=== PATIENT | male | born 1995 | race African-American/Black ===

== ENCOUNTER 2022-10-15 16:04 | Emergency (ER) | payer OTHER ==
[2022-10-15] MEDS ORDERED: NA CHLORIDE 0.9% 0 ML ONE (16:47)
[2022-10-15] MEDS ORDERED: VANCOMYCIN 1 GM/VIAL ONE ×2 (16:47→16:49)
[2022-10-15] MEDS ORDERED: NA CHLORIDE 0.9% 250 ML ONE (16:49)
[2022-10-15 17:08] LABS: Absolute Lymphocytes (CBC) 1.7 K/uL (0.7-4.9); Hematocrit 45.8 % (39.6-49.0); Lymphocytes % 37.2 % (15.3-44.8); MCV 88.7 fL (80-100); MPV 8.8 fL (7.6-11.3); RBC Red Blood Cell Count 5.16 M/uL (4.33-5.43)
[2022-10-15 17:20] LABS: Potassium 4.2 mEq/L (3.5-5.1)
--- NOTE | 2022-10-15 17:46 | RAD REPORT ---
EXAM DESCRIPTION: CT - Soft Tissue Neck W/Contr CLINICAL HISTORY: SWELLING COMPARISON: No comparisons TECHNIQUE: Thin axial CT images of the neck, performed following intravenous administration of 95 m L Isovue-300. Multiplanar reformats were generated and reviewed. All CT scans are performed using dose optimization technique as appropriate and may include automated exposure control or mA/KV adjustment according to patient size. FINDINGS: Skin thickening, with underlying swelling and moderately pronounced subcutaneous soft tiss ue edema along the right anterolateral neck, overlying the sternocleidomastoid. No measurable fluid c ollections. Skin irregularity just posterolateral to the skin marker, may suggest a small ulcer or wo und. Mild subcutaneous soft tissue swelling extends superiorly and anteriorly, overlying the right pa rotid gland region, and right aspect of the chin. No soft tissue gas. No appreciable inflammatory shruthi nges of the sternocleidomastoid muscle belly or the prior neck soft tissues. Nasopharyngeal tissues are normal in appearance. Fossa Rosenmller are normal. Parapharyngeal fat triangles are symmetric. Tongue base structures are normal. Epiglottis and aryepiglottic folds are normal. Piriform sinuses are well aerated. The vocal cords are normal in appearance. No suspicious adenopathy. Major vessels opacify normally. Salivary glands are normal in appearance. Upper lung west are clear. Included intracranial contents are unremarkable. IMPRESSION: Right antro lateral neck subcutaneous soft tissue swelling, edema, and skin thickening, suggestive of cellulitis. No appreciable fluid collections or findings to suggest infection of the de ep neck spaces.
--- NOTE | 2022-10-15 18:03 | EDPHYS ---
Physician Documentation [facility] Name: Bruce Melton Age: 26 yrs Sex: Male : 1995 Arrival Date: 10/15/2022 Time: 16:04 Bed 20 Private MD: ED Physician Dmitri Shabazz HPI: 10/15 16:24 This 26 yrs old Male presents to ER via Ambulatory with complaints of Abscess. sp3 16:24 26-year-old male with no past medical history presents ED with right-sided neck pain sp3 and abscess. Patient has had symptoms for over a week. At the present, he was prescribed minocycline p.o. but did not pick it up from the pharmacy. Subsequent to that, he "popped it himself" earlier this morning at which point he got out "a lot of pus and some bleeding". It was decided at that point that they will transfer him here for further evaluation. No prior history of neck abscess. There is no airway compromise or difficulty swallowing. Patient does not have any upper respiratory symptoms or any other infectious symptoms that would cause any potential lymphadenopathy. On review of systems, he denies headache, fever, chest pain, back pain, shortness of breath, nausea, vomiting, diarrhea, secondary rash or lesion, known sick contacts, or any other signs or symptoms at this time.. Historical: - Allergies: 16:13 No Known Allergies; kr3 - Home Meds: 16:13 None [Active]; kr3 - PMHx: 16:13 None; kr3 - PSHx: 16:13 None; kr3 - Immunization history:: Adult Immunizations not up to date. - Social history:: Smoking status: Patient denies any tobacco usage or history of. ROS: 16:25 Constitutional: Negative for fever, chills, and weight loss, Eyes: Negative for injury, sp3 pain, redness, and discharge, ENT: Negative for injury, pain, and discharge, Cardiovascular: Negative for chest pain, palpitations, and edema, Respiratory: Negative for shortness of breath, cough, wheezing, and pleuritic chest pain, Abdomen/GI: Negative for abdominal pain, nausea, vomiting, diarrhea, and constipation, Back: Negative for injury and pain, : Negative for injury, bleeding, discharge, and swelling, MS/Extremity: Negative for injury and deformity, Skin: Negative for injury, rash, and discoloration, Neuro: Negative for headache, weakness, numbness, tingling, and seizure, Psych: Negative for depression, anxiety, suicide ideation, homicidal ideation, and hallucinations, Allergy/Immunology: Negative for hives, rash, and allergies, Endocrine: Negative for neck swelling, polydipsia, polyuria, polyphagia, and marked weight changes. 16:25 All other systems are negative. Exam: 16:25 Constitutional: This is a well developed, well nourished patient who is awake, alert, sp3 and in no acute distress. Head/Face: Normocephalic, atraumatic. Eyes: Pupils equal round and reactive to light, extra-ocular motions intact. Lids and lashes normal. Conjunctiva and sclera are non-icteric and not injected. Cornea within normal limits. Periorbital areas with no swelling, redness, or edema. ENT: Nares patent. No nasal discharge, no septal abnormalities noted. External auditory canals are clear. Oropharynx with no redness, swelling, or masses, exudates, or evidence of obstruction, uvula midline. Mucous membranes moist. Chest/axilla: Normal chest wall appearance and motion. Nontender with no deformity. No lesions are appreciated. Cardiovascular: Regular rate and rhythm with a normal S1 and S2. No gallops, murmurs, or rubs. Normal PMI, no JVD. No pulse deficits. Respiratory: Lungs have equal breath sounds bilaterally, clear to auscultation and percussion. No rales, rhonchi or wheezes noted. No increased work of breathing, no retractions or nasal flaring. Abdomen/GI: Soft, non-tender, with normal bowel sounds. No distension or tympany. No guarding or rebound. No evidence of tenderness throughout. Back: No spinal tenderness. No costovertebral tenderness. Full range of motion. Skin: Warm, dry with normal turgor. Normal color with no rashes, no lesions, and no evidence of cellulitis. MS/ Extremity: Pulses equal, no cyanosis. Neurovascular intact. Full, normal range of motion. Neuro: Awake and alert, GCS 15, oriented to person, place, time, and situation. Cranial nerves II-XII grossly intact. Motor strength 5/5 in all extremities. Sensory grossly intact. Cerebellar exam normal. Normal gait. Psych: Awake, alert, with orientation to person, place and time. Behavior, mood, and affect are within normal limits. 16:25 Neck: 2 cm x 4 cm lesion on the right neck just lateral to the thyroid cartilage. Pulses normal and lesion is not over the carotid artery. There is no other secondary lymphadenopathy. Ulceration is noted where patient self eviscerated the head of the abscess. No current bleeding noted.. Vital Signs: 16:11 BP 122 / 77; Pulse 60; Resp 18; Temp 98.3; Pulse Ox 98% ; Weight 77.11 kg; Height 5 ft. kr3 8 in. ; Pain 0/10; 17:14 BP 126 / 88; Pulse 57; Resp 18; Pulse Ox 98% on R/A; kr3 18:15 BP 116 / 69; Pulse 51; Resp 18; Pulse Ox 95% on R/A; kr3 18:55 BP 123 / 78; Pulse 56; Resp 18; Pulse Ox 100% on R/A; kr3 16:11 Body Mass Index 25.85 (77.11 kg, 172.72 cm) kr3 16:11 Pain Scale: Adult kr3 MDM: 16:10 Patient medically screened. sp3 16:26 Data reviewed: vital signs, nurses notes, old medical records, lab test result(s), sp3 radiologic studies. ED course: I am not highly suspicious that a large purulent cavity remains however we will obtain CT scan of the neck with IV contrast and obtain laboratory values. Vancomycin 1 g IV will also be administered. If work-up is negative, patient will be discharged home on p.o. clindamycin and Bactrim. Vital signs are normal and patient has no other signs of sepsis.. 18:01 ED course: Laboratory values are within normal limits. CT scan of the neck demonstrates sp3 no significant fluid collection and only surface cellulitis. No deep tissue infection is noted. Will finish vancomycin infusion and discharge patient home on clindamycin and Bactrim p.o.. 10/15 16:11 Order name: CBC with Diff; Complete Time: 18:01 sp3 10/15 16:11 Order name: Chem 7; Complete Time: 18: sp3 10/15 16:11 Order name: Wound Culture sp3 10/15 16:11 Order name: CT Soft Tissue Neck W/contr; Complete Time: 18:01 sp3 10/15 16:11 Order name: IV Saline Lock; Complete Time: 16:35 sp3 Administered Medications: 16:43 Drug: vancoMYCIN IVPB 1 grams Route: IVPB; Infused Over: 2 hrs; Site: right antecubital;kr3 18:57 Follow up: Response: No adverse reaction; IV Status: Completed infusion; IV Intake: kr3 250ml Disposition Summary: 10/15/22 18:02 Discharge Ordered Location: Home sp3 Condition: Stable sp3 Diagnosis - Cellulitis of the right neck sp3 Followup: sp3 - With: Private Physician - When: Upon discharge from the Emergency Department - Reason: Continuance of care Discharge Instructions: - Discharge Summary Sheet sp3 - Cellulitis, Adult sp3 Forms: - Medication Reconciliation Form sp3 - Thank You Letter sp3 - Antibiotic Education sp3 - Prescription Opioid Use sp3 Prescriptions: - Clindamycin HCl 300 mg Oral Capsule - take 1 capsule by ORAL route every 6 hours for 7 days; 28 capsule; Refills: 0, sp3 Product Selection Permitted - Bactrim DS 800-160 mg Oral Tablet - take 1 tablet by ORAL route every 12 hours for 7 days; 14 tablet; Refills: 0, sp3 Product Selection Permitted Signatures: Dispatcher [employer] Dmitri Nielsen MD MD sp3 Kamryn Tripathi RN RN kr3
--- NOTE | 2022-10-15 18:03 | ER ---
Nurse's Notes [facility] Name: Bruce Melton Age: 26 yrs Sex: Male : 1995 Arrival Date: 10/15/2022 Time: 16:04 Bed 20 Private MD: Diagnosis: Cellulitis of the right neck Presentation: 10/15 16:11 Chief complaint: Patient states: Large swollen area on the right side of my neck for 2 kr3 weeks, I popped it today, puss and blood came out. Coronavirus screen: Vaccine status: Patient reports receiving the 2nd dose of the covid vaccine. Ebola Screen: Patient denies travel to an Ebola-affected area in the 21 days before illness onset. Initial Sepsis Screen: Does the patient meet any 2 criteria? No. Patient's initial sepsis screen is negative. Does the patient have a suspected source of infection? No. Patient's initial sepsis screen is negative. Risk Assessment: Do you want to hurt yourself or someone else? Patient reports no desire to harm self or others. Onset of symptoms was October 01, 2022. 16:11 Method Of Arrival: Ambulatory kr3 16:11 Acuity: RAVI 3 kr3 Triage Assessment: 16:14 General: Appears in no apparent distress. comfortable, Behavior is calm, cooperative, kr3 appropriate for age. Pain: Denies pain. EENT: No signs and/or symptoms were reported regarding the EENT system. Neuro: Level of Consciousness is awake, alert, obeys commands, Oriented to person, place, time, situation. Cardiovascular: Patient's skin is warm and dry. Respiratory: Airway is patent Respiratory effort is even, unlabored, Respiratory pattern is regular, symmetrical. GI: No signs and/or symptoms were reported involving the gastrointestinal system. : No signs and/or symptoms were reported regarding the genitourinary system. Derm: Wound noted right neck. Historical: - Allergies: 16:13 No Known Allergies; kr3 - Home Meds: 16:13 None [Active]; kr3 - PMHx: 16:13 None; kr3 - PSHx: 16:13 None; kr3 - Immunization history:: Adult Immunizations not up to date. - Social history:: Smoking status: Patient denies any tobacco usage or history of. Screenin:[facility] ED Fall Risk Assessment (Adult) History of falling in the last 3 months, kr3 including since admission No falls in past 3 months (0 pts). Abuse screen: Denies threats or abuse. Nutritional screening: No deficits noted. Tuberculosis screening: No symptoms or risk factors identified. Assessment: 17:13 Reassessment: Patient appears in no apparent distress at this time. Patient and/or kr3 family updated on plan of care and expected duration. Pain level reassessed. Patient is alert, oriented x 3, equal unlabored respirations, skin warm/dry/pink. 18:15 Reassessment: Patient appears in no apparent distress at this time. Patient and/or kr3 family updated on plan of care and expected duration. Pain level reassessed. Patient is alert, oriented x 3, equal unlabored respirations, skin warm/dry/pink. Vital Signs: 16:11 BP 122 / 77; Pulse 60; Resp 18; Temp 98.3; Pulse Ox 98% ; Weight 77.11 kg; Height 5 ft. kr3 8 in. ; Pain 0/10; 17:14 BP 126 / 88; Pulse 57; Resp 18; Pulse Ox 98% on R/A; kr3 18:15 BP 116 / 69; Pulse 51; Resp 18; Pulse Ox 95% on R/A; kr3 18:55 BP 123 / 78; Pulse 56; Resp 18; Pulse Ox 100% on R/A; kr3 16:11 Body Mass Index 25.85 (77.11 kg, 172.72 cm) kr3 16:11 Pain Scale: Adult kr3 ED Course: 16:08 Patient arrived in ED. ss 16:09 Dmitri Shabazz MD is Attending Physician. sp3 16:11 Kamryn Tripathi, ISHAN is Primary Nurse. kr3 16:13 Triage completed. kr3 16:16 Arm band placed on left wrist. Patient placed in an exam room, on a stretcher. kr3 16:20 Bed in low position. Call light in reach. Side rails up X 1. kr3 16:25 Inserted saline lock: 20 gauge in right antecubital area, using aseptic technique. kr3 Blood collected. 16:59 CT Soft Tissue Neck W/contr In Process Unspecified. EDMS 18:56 No provider procedures requiring assistance completed. IV discontinued, intact, kr3 bleeding controlled, No redness/swelling at site. Pressure dressing applied. Administered Medications: 16:43 Drug: vancoMYCIN IVPB 1 grams Route: IVPB; Infused Over: 2 hrs; Site: right antecubital;kr3 18:57 Follow up: Response: No adverse reaction; IV Status: Completed infusion; IV Intake: kr3 250ml Medication: 18:56 VIS not applicable for this client. kr3 Intake: 18:57 IV: 250ml; Total: 250ml. kr3 Outcome: 18:02 Discharge ordered by . sp3 18:56 Discharged to Law Enforcement kr3 18:56 Condition: stable 18:56 Discharge instructions given to patient, Instructed on discharge instructions, follow up and referral plans. medication usage, Demonstrated understanding of instructions, follow-up care, medications, Prescriptions given X 2. 18:57 Patient left the ED. kr3 Signatures: Dispatcher [employer] EDMS Clotilde Cueva, RN RN Dmitri Rodriguez MD MD sp3 Kamryn Tripathi RN RN kr3
[2022-10-15 19:11] VITALS: TEMP 98.3
[2022-10-15 19:17] VITALS: BP 123/78; O2SAT 100
== END 2022-10-15 18:57 | disposition home or self-care (01) ==
LOC: ER 16:04
DX: L03.221 Cellulitis of neck (principal)
CPT/HCPCS: 96365; 87070; 85025; 80048; 36415; 87205; 70491; 99284; 96366; Q9967; J7050